=== PATIENT | female | born 1940 | race Caucasian/White ===

== ENCOUNTER 2019-09-12 11:59 | Emergency (ER) | payer MEDICARE, OTHER ==
[2019-09-12] MEDS ORDERED: ACETAMINOPHEN 500 MG TAB PO ONE (12:12)
--- NOTE | 2019-09-12 12:14 | ED.PDOC ---
History of Present Illness - General Chief Complaint: Trauma Time Seen by Provider: 09/12/19 12:09 - History of Present Illness Initial Comments: 79 yo F PMH Thyroid Disease and Broken Nose in the past presents to ED c/o fall and hit to nose with bleeding after mechanical fall over door stop 30 minutes ago. Denies LOC or blood thinners PMD Dr. Vazquez denies fever chills nausea vomiting diarrhea chest pain sob diaphoresis. No change in diet rest bowel or bladder denies drinking or smoking no other c/o today. Allergies/Adverse Reactions: Allergies Iodine Allergy (Verified 09/12/19 12:42) Home Medications: Ambulatory Orders Acetaminophen [Tylenol] 650 mg PO Q6H PRN #30 tab 09/12/19 Ibuprofen 600 mg PO Q6H PRN #20 tab 09/12/19 Review of Systems - Review of Systems Constitutional: States: see HPI EENTM: States: see HPI Respiratory: States: see HPI Cardiology: States: see HPI Gastrointestinal/Abdominal: States: see HPI Genitourinary: States: see HPI Musculoskeletal: States: see HPI Skin: States: see HPI Neurological: States: see HPI Endocrine: States: see HPI Hematologic/Lymphatic: States: see HPI All other Systems: Reviewed and Negative Family Medical History - Family History Mother Family History: No Known Living Status: Physical Exam - Physical Exam General Appearance: No apparent distress Eye Exam: bilateral normal Ears, Nose, Throat: normal pharynx, other - Nasal swelling mild bleeding from nares Neck: non-tender, full range of motion, other - Will place c collar for distracting injury Respiratory: normal breath sounds Cardiovascular/Chest: regular rate, rhythm Gastrointestinal/Abdominal: non tender, soft Back Exam: other - Deferred Extremity: normal range of motion, non-tender Neurologic: no motor/sensory deficits Skin Exam: normal color Progress - Progress Progress: 09/12/19 12:16 A/P-Fall Nasal Contusion, Closed Head Injury, Epistaxis-c collar ct head neck facial bones cbc cmp trop cxr ekg tylenol if unremarkable d/c follow up pcp 09/12/19 13:06 EXAM DESCRIPTION: Noncontrast CT head CLINICAL HISTORY: trauma COMPARISON: None TECHNIQUE: Noncontrast transaxial CT images of the head are obtained from base to vertex. This exam was performed according to our departmental dose-optimization program, which includes automated exposure control, adjustment of the mA and/or kV according to patient size and/or use of iterative reconstruction technique. FINDINGS: The midline structures are not displaced. Sulci are age-appropriate. There are areas of decreased attenuation in the periventricular white matter and the white matter of the centrum semiovale. There is no evidence of mass, mass-effect, hydrocephalus, or acute intracranial hemorrhage. No abnormal extra axial fluid collection is seen. Bone windows show no evidence of depressed skull fracture. The visualized paranasal sinuses are unremarkable. IMPRESSION: 1. Age-appropriate atrophy with evidence of old small vessel ischemic type changes seen. 2. No acute abnormality is seen on noncontrast CT of the head. Electronically signed by: Amol Jean Baptiste MD 09/12/2019 12:45 PM AUTO SERVICE INSTRUCTOR EXAM DESCRIPTION: Cervical Spine CLINICAL HISTORY: trauma COMPARISON: None available. TECHNIQUE: Axial noncontast CT of the cervical spine with coronal and sagittal reformats. This exam was performed according to our departmental dose-optimization program, which includes automated exposure control, adjustment of the mA and/or kV according to patient size and/or use of iterative reconstruction technique. FINDINGS: Cervical vertebral body heights are maintained. Straightening of the normal cervical lordosis. No acute fracture or posttraumatic positional abnormality is seen. Severe degenerative changes between the anterior arch of C1 and the odontoid are identified. Severe left C3- 4 and mild left C3 facet hypertrophic and degenerative changes are seen. Mild disc space narrowing is seen at C4-5 with moderate disc space narrowing and ventral ridging disc osteophyte complexes from C5 through C7. Mild spinal canal stenosis is seen at C5-6. Facet arthropathy results in severe left foraminal encroachment at C3-4. Mild to moderate facet hypertrophic and degenerative changes from C7 through T3 are seen contributing to left greater than right foraminal encroachment. Lung apices show no acute findings. Mild carotid artery calcifications. No pathologic lymphadenopathy. IMPRESSION: No CT evidence of acute fracture or posttraumatic positional abnormality of the cervical spine. Mild to moderate disc degenerative changes and facet arthropathy of the cervical spine are seen as described above. Facet arthropathy results in significant left C3-4 foraminal encroachment. Electronically signed by: Amol Jean Baptiste MD 09/12/2019 1:00 PM [employer] SERV[employer] EXAM DESCRIPTION: Maxillofacial CLINICAL HISTORY: trauma COMPARISON: None. TECHNIQUE: Noncontrast transaxial CT images of the maxillofacial region are obtained with coronal and sagittal reconstructed images. This exam was performed according to our departmental dose-optimization program, which includes automated exposure control, adjustment of the mA and/or kV according to patient size and/or use of iterative reconstruction technique . FINDINGS: Normal aeration of the paranasal sinuses seen. Tiny right maxillary sinus air-fluid level. Otherwise no mucosal thickening or air-fluid levels are identified. Mild soft tissue thickening and small soft tissue emphysema in the soft tissue aspect of the nose without CT evidence of nasal bone fracture. Soft tissue thickening and fluid in the floor of the right nasal canal is seen. 2 mm of righ tward deviation of the mid bony nasal septum. No edinson bullosa. Ostiomeatal units are patent bilaterally. The orbits and ocular globes are intact and symmetric. Zygomatic arches are intact. No fracture or dislocation of the mandible. Visualized intracranial structures are unremarkable. IMPRESSION: Mild soft tissue swelling and emphysema likely represents recent injury to the soft tissues of the nose. Small amount of fluid and soft tissue thickening in the floor of the right nasal canal likely related to acute nasal injury without definite evidence of displaced nasal bone fracture. No CT evidence of acute facial bone fracture. Electronically signed by: Amol Jean Baptiste MD 09/12/2019 12:49 PM [employer] SERVICE IN[employer] Laboratory Tests 09/12/19 09/12/19 09/12/19 12:17 12:17 12:17 WBC 5.9 RBC 5.04 Hgb 15.5 Hct 45.1 MCV 89.5 MCH 30.7 MCHC 34.4 RDW 13.2 Plt Count 174 MPV 9.2 Absolute Neuts (auto) 4.40 Absolute Lymphs (auto) 0.90 L Absolute Monos (auto) 0.40 Absolute Eos (auto) 0.20 Absolute Basos (auto) 0.10 Neutrophils % 73.9 Lymphocytes % 14.8 L Monocytes % 7.5 Eosinophils % 2.8 Basophils % 1.0 Sodium 134 L Potassium 4.3 Chloride 97 L Carbon Dioxide 27 Anion Gap 14.3 BUN 20 H Creatinine 1.01 BUN/Creatinine Ratio 19.8 Random Glucose 152 H Serum Osmolality 273.8 L Calcium 9.3 Total Bilirubin 0.8 AST 31 ALT 33 Alkaline Phosphatase 52 Troponin I < 0.02 Serum Total Protein 7.1 Albumin 4.3 Globulin 2.8 Albumin/Globulin Ratio 1.5 09/12/19 13:15 EXAM DESCRIPTION: Chest,1 View CLINICAL HISTORY: 79 years Female, trauma COMPARISON: None. FINDINGS: 2 views/radiographs Heart size and pulmonary vessels are within normal limits. There is no pneumothorax or pleural effusion. The lungs are clear bilaterally. The soft tissues are unremarkable. No acute osseous findings. IMPRESSION: No acute cardiopulmonary abnormality. Electronically signed by: Lenin Goodrich MD 09/12/2019 1:09 PM [employer] SERVICE IN[employer]CTOR Brother and [place]am[place] friend at bedside - Results/Orders Results/Orders: EKG-Non specific TW changes No STEMI NSR 68bpm motion artifact Departure - Departure Clinical Impression: Epistaxis due to trauma Fall Qualifiers: Encounter type: initial encounter Qualified Code(s): W19.XXXA - Unspecified fall, initial encounter Contusion of nose Qualifiers: Encounter type: initial encounter Qualified Code(s): S00.33XA - Contusion of nose, initial encounter Closed head injury Qualifiers: Encounter type: initial encounter Qualified Code(s): S09.90XA - Unspecified injury of head, initial encounter Time of Disposition: 13:13 Disposition: Discharge to Home or Self Care Condition: Good Departure Forms: ED Discharge - Pt. Copy, Patient Portal Self Enrollment Instructions: DI for Trauma Referrals: Zelalem Arteaga MD [Primary Care Provider] - 1-2 Weeks Prescriptions: Acetaminophen [Tylenol] 650 mg PO Q6H PRN #30 tab PRN Reason: Pain Ibuprofen 600 mg PO Q6H PRN #20 tab PRN Reason: Pain Home Medications: Ambulatory Orders Acetaminophen [Tylenol] 650 mg PO Q6H PRN #30 tab 09/12/19 Ibuprofen 600 mg PO Q6H PRN #20 tab 09/12/19
[2019-09-12] MEDS ORDERED: SODIUM CHLORIDE 0.9% 1000ML 1,000 ML IVS ONE (12:20)
--- NOTE | 2019-09-12 12:47 | CT ---
EXAM DESCRIPTION: Noncontrast CT head CLINICAL HISTORY: trauma COMPARISON: None TECHNIQUE: Noncontrast transaxial CT images of the head are obtained from base to vertex. This exam was performed according to our departmental dose-optimization program, which includes automated exposure control, adjustment of the mA and/or kV according to patient size and/or use of iterative reconstruction technique. FINDINGS: The midline structures are not displaced. Sulci are age-appropriate. There are areas of decreased attenuation in the periventricular white matter and the white matter of the centrum semiovale. There is no evidence of mass, mass-effect, hydrocephalus, or acute intracranial hemorrhage. No abnormal extra axial fluid collection is seen. Bone windows show no evidence of depressed skull fracture. The visualized paranasal sinuses are unremarkable. IMPRESSION: 1. Age-appropriate atrophy with evidence of old small vessel ischemic type changes seen. 2. No acute abnormality is seen on noncontrast CT of the head. Electronically signed by: Amol Jean Baptiste MD 09/12/2019 12:45 PM [facility]
--- NOTE | 2019-09-12 12:51 | CT ---
EXAM DESCRIPTION: Maxillofacial CLINICAL HISTORY: trauma COMPARISON: None. TECHNIQUE: Noncontrast transaxial CT images of the maxillofacial region are obtained with coronal and sagittal reconstructed images. This exam was performed according to our departmental dose-optimization program, which includes automated exposure control, adjustment of the mA and/or kV according to patient size and/or use of iterative reconstruction technique . FINDINGS: Normal aeration of the paranasal sinuses seen. Tiny right maxillary sinus air-fluid level. Otherwise no mucosal thickening or air-fluid levels are identified. Mild soft tissue thickening and small soft tissue emphysema in the soft tissue aspect of the nose without CT evidence of nasal bone fracture. Soft tissue thickening and fluid in the floor of the right nasal canal is seen. 2 mm of rightward deviation of the mid bony nasal septum. No edinson bullosa. Ostiomeatal units are patent bilaterally. The orbits and ocular globes are intact and symmetric. Zygomatic arches are intact. No fracture or dislocation of the mandible. Visualized intracranial structures are unremarkable. IMPRESSION: Mild soft tissue swelling and emphysema likely represents recent injury to the soft tissues of the nose. Small amount of fluid and soft tissue thickening in the floor of the right nasal canal likely related to acute nasal injury without definite evidence of displaced nasal bone fracture. No CT evidence of acute facial bone fracture. Electronically signed by: Amol Jean Baptiste MD 09/12/2019 12:49 PM INSTRUMENTATION TECHNICIAN
--- NOTE | 2019-09-12 13:02 | CT ---
EXAM DESCRIPTION: Cervical Spine CLINICAL HISTORY: trauma COMPARISON: None available. TECHNIQUE: Axial noncontast CT of the cervical spine with coronal and sagittal reformats. This exam was performed according to our departmental dose-optimization program, which includes automated exposure control, adjustment of the mA and/or kV according to patient size and/or use of iterative reconstruction technique. FINDINGS: Cervical vertebral body heights are maintained. Straightening of the normal cervical lordosis. No acute fracture or posttraumatic positional abnormality is seen. Severe degenerative changes between the anterior arch of C1 and the odontoid are identified. Severe left C3-4 and mild left C3 facet hypertrophic and degenerative changes are seen. Mild disc space narrowing is seen at C4-5 with moderate disc space narrowing and ventral ridging disc osteophyte complexes from C5 through C7. Mild spinal canal stenosis is seen at C5-6. Facet arthropathy results in severe left foraminal encroachment at C3-4. Mild to moderate facet hypertrophic and degenerative changes from C7 through T3 are seen contributing to left greater than right foraminal encroachment. Lung apices show no acute findings. Mild carotid artery calcifications. No pathologic lymphadenopathy. IMPRESSION: No CT evidence of acute fracture or posttraumatic positional abnormality of the cervical spine. Mild to moderate disc degenerative changes and facet arthropathy of the cervical spine are seen as described above. Facet arthropathy results in significant left C3-4 foraminal encroachment. Electronically signed by: Amol Jean Baptiste MD 09/12/2019 1:00 PM [facility]
--- NOTE | 2019-09-12 13:11 | RAD ---
EXAM DESCRIPTION: Chest,1 View CLINICAL HISTORY: 79 years Female, trauma COMPARISON: None. FINDINGS: 2 views/radiographs Heart size and pulmonary vessels are within normal limits. There is no pneumothorax or pleural effusion. The lungs are clear bilaterally. The soft tissues are unremarkable. No acute osseous findings. IMPRESSION: No acute cardiopulmonary abnormality. Electronically signed by: Lenin Goodrich MD 09/12/2019 1:09 PM RN ANESTHETIST
[2019-09-12 13:30] VITALS: BP 147/92; TEMP 97.6; O2SAT 98
== END 2019-09-12 13:27 | disposition home or self-care (01) ==
LOC: ER 11:59
DX: S00.33XA Contusion of nose, initial encounter (principal); S09.90XA Unspecified injury of head, initial encounter; R04.0 Epistaxis; M50.323 Other cervical disc degeneration at C6-C7 level; G31.9 Degenerative disease of nervous system, unspecified; E07.9 Disorder of thyroid, unspecified; Z91.041 Radiographic dye allergy status; Z87.81 Personal history of (healed) traumatic fracture; W01.0XXA Fall on same level from slipping, tripping and stumbling without subsequent striking against object, initial encounter; Y92.9 Unspecified place or not applicable
CPT/HCPCS: 36415; 70450; 70486; 71045; 72125; 80053; 84484; 85025; 93005; L0120